=== PATIENT | female | born 1945 | race Caucasian/White ===

== ENCOUNTER 2016-09-07 13:01 | Emergency (ER) | payer MEDICARE ==
[2016-09-07 14:29] VITALS: BP 143/65
--- NOTE | 2016-09-07 15:28 | UC ---
Throat Pain/Nasal Estefania HPI - HPI Summary HPI Summary: ST, nasal estefania, PND, prod cough, red/weepy eyes starting 3 days ago. Not sure if she's had a fever. Denies wheezing or rash. Has to call into work today. - History of Current Complaint Chief Complaint: UCRespiratory Stated Complaint: SORE THROAT Time Seen by Provider: 09/07/16 14:52 Hx Obtained From: Patient ?: No Onset/Duration: Gradual Onset, Lasting Days Severity: Moderate Cough: Productive Associated Signs & Symptoms: Positive: Nasal Discharge. Negative: Fever, Vomiting - Allergies/Home Medications Allergies/Adverse Reactions: Allergies Allergy/AdvReac Type Severity Reaction Status Date / Time Atorvastatin [From Lipitor] Allergy Intermediate Body Aches Verified 09/05/14 20 :13 Gemfibrozil Allergy Intermediate Full Body Verified 09/05/14 20:13 Aches Niacin [From Niaspan] Allergy Intermediate Hives Verified 09/05/14 20:13 Penicillins [PCN] Allergy Intermediate Hives Verified 09/05/14 20:13 Statins Allergy Intermediate Body Aches Verified 09/05/14 20:13 Latex Allergy RED FARRAR Verified 09/05/14 20:13 Home Medications: Home Medications Multiple Vitamins W/ Minerals [Airborne] 1 tab PO 09/07/16 [History] PMH/Surg Hx/FS Hx/Imm Hx Endocrine History Of: Reports: Diabetes - DM II Denies: Thyroid Disease Cardiovascular History Of: Reports: Hypertension Denies: Cardiac Disorders Respiratory History Of: Reports: Asthma, Pulmonary Embolism - 2004 AFTER RIGHT TKR Denies: COPD GI/ History Of: Denies: Ulcer Cancer History Of: Denies: Breast Cancer - Surgical History Surgical History: Yes Surgery Procedure, Year, and Place: RIGHT KNEE REPLACED 2007. Left knee replaced 2013. cyst under chin (benign). bilat wrists CTS - Family History Known Family History: Positive: Hypertension - Social History Occupation: Employed Full-time - home health aide Alcohol Use: None Substance Use Type: None Smoking Status (MU): Former Smoker Type: Cigarettes Length of Time of Smoking/Using Tobacco: ABOUT 6 MONTHS Have You Smoked in the Last Year: No When Did the Patient Quit Smoking/Using Tobacco: 1984 - Immunization History Most Recent Influenza Vaccination: 2013 Most Recent Tetanus Shot: UNKNOWN Most Recent Pneumonia Vaccination: apr 2015 Review of Systems Constitutional: Negative Skin: Negative Eyes: Drainage, Eye Redness ENT: Sore Throat, Nasal Discharge Respiratory: Cough Cardiovascular: Negative Gastrointestinal: Negative Genitourinary: Negative Motor: Negative Neurovascular: Negative Musculoskeletal: Negative Neurological: Negative Psychological: Negative All Other Systems Reviewed And Are Negative: Yes Physical Exam Triage Information Reviewed: Yes Appearance: Well-Appearing, No Pain Distress, Obese Vital Signs: Initial Vital Signs Temp 97.8 F 09/07/16 14:26 Pulse 70 09/07/16 14:26 Resp 18 09/07/16 14:26 BP 143/65 09/07/16 14:26 Pulse Ox 99 09/07/16 14:26 Vital Signs Reviewed: Yes Eyes: Positive: Conjunctiva Inflamed, Discharge - clear ENT: Positive: Pharynx normal, Nasal congestion, Nasal drainage, TMs normal. Negative: Tonsillar swelling, Tonsillar exudate Dental Exam: Normal Neck exam: Normal Neck: Positive: Supple, Nontender, No Lymphadenopathy Respiratory Exam: Normal Respiratory: Positive: Chest non-tender, Lungs clear, Normal breath sounds, No respiratory distress, No accessory muscle use Cardiovascular Exam: Normal Cardiovascular: Positive: RRR, No Murmur Musculoskeletal Exam: Normal Neurological Exam: Normal Psychological Exam: Normal Skin Exam: Normal Throat Pain/Nasal Course/Dx - Differential Dx/Diagnosis Provider Diagnoses: URI, likely viral. conjunctivitis, likely viral Discharge - Discharge Plan Condition: Stable Disposition: HOME Prescriptions: Polymyx/Trimethoprim OPTH* [Polytrim OPHTH*] 1 drop BOTH EYES TID #1 btl Patient Education Materials: Upper Respiratory Infection (ED), Conjunctivitis ( ED) Forms: *Work Release Referrals: Tawanna Rich MD [Primary Care Provider] - If Needed Additional Instructions: As we discussed, I feel fairly certain that your conjunctivitis is viral. It will not likely get better any faster with the antibiotic drops. However, sometimes employers are concerned about red eyes and require medicine to return to work. Call or return if you develop increasing fever, shortness of breath, chest pain , bloody sputum, or otherwise worsen. If you have not improved at all after several days, contact your primary care physician or return here.
== END 2016-09-07 15:23 | disposition home or self-care (01) ==
LOC: UCEAST 13:01
DX: J06.9 Acute upper respiratory infection, unspecified (principal); H10.30 Unspecified acute conjunctivitis, unspecified eye; Z88.0 Allergy status to penicillin; Z88.8 Allergy status to other drugs, medicaments and biological substances; Z87.891 Personal history of nicotine dependence
CPT/HCPCS: 99212; G0463

== ENCOUNTER 2023-01-14 11:42 | Inpatient (IN) ==
[2023-01-14 13:36] LABS: ABS Eosinophils 0.1 10^3/uL (0.0-0.5); ABS Lymphocytes 0.7 10^3/uL (1.0-4.8); ABS Monocytes 1.3 10^3/uL (0.0-0.9); Eosinophil % 0.5 %; Hematocrit 41.8 % (35-45); Hemoglobin 14.5 g/dL (11.5-14.3); Lymphocyte % 6.9 %; Mean Corpuscular Hemoglobin 31.8 pg (27-33); Mean Corpuscular Hgb Conc 34.7 g/dL (31-36); Mean Corpuscular Volume 91.5 fL (80-97); Mean Platelet Volume 7.5 fL (7.5-11.2); Platelet Count 222 10^3/uL (150-450); Red Blood Count 4.57 10^6/uL (3.63-4.92); Red Cell Distribution Width 13.9 % (12-17); White Blood Count 10.2 10^3/uL (3.8-11.8)
[2023-01-14 13:49] LABS: Activated Partial Thrombo Time 38.8 seconds (26.0-38.0); INR 2.43 (0.88-1.18)
[2023-01-14 14:31] LABS: Albumin 4.4 g/dL (3.2-5.2); Albumin/Globulin Ratio 1.7 (1-3); C Reactive Protein 49.77 mg/L (<8.01); Calcium 9.2 mg/dL (8.6-10.3); Creatinine, Serum 0.77 mg/dL (0.51-0.95); Globulin 2.6 g/dL (2-4); Potassium 3.4 mmol/L (3.5-5.0); eGFR CKD-EPI 80.4 (>60)
[2023-01-14] MEDS ORDERED: Potassium Chlor 20 meq TAB.ER PO ONE (14:44)
[2023-01-14] MEDS: Orphenadrine Citrate INJ 30 mg/ml 2 ml VIAL (60 mg) IV ONE ×2 (15:06→15:09)
[2023-01-14] MEDS ORDERED: Morphine 4 MG/ML VIAL (1 ml) IV ONE ×2 (16:51→19:49)
[2023-01-14 18:05] LABS: High Sensitivity Troponin 1 Hr 9 pg/mL (<15)
[2023-01-14 18:52] LABS: Erythrocyte Sed Rate 42 mm/Hr (0-29)
[2023-01-14 20:44] LABS: Body Fluid Appearance Cloudy; Body Fluid Color Yellow; Body Fluid Source Synovial Fluid
[2023-01-14 20:47] LABS: Body Fluid Appearance Cloudy; Body Fluid Color Amber; Body Fluid Source Synovial Fluid
[2023-01-14 21:16] LABS: Body Fluid WBC 576 /mcL
[2023-01-14 21:31] LABS: Body Fluid WBC 49295 /mcL
[2023-01-14 21:42] LABS: Body Fluid Band 2 %; Body Fluid Mono 32 %; Body Fluid Other Cells 60; Body Fluid Total Cells Counted 200
[2023-01-14] MEDS ORDERED: Piperacillin/Tazobac ADVAN 3.375 GM in NS 0.9% 100 ml BAG 100 ML IV ONE (21:59)
[2023-01-14] MEDS ORDERED: Vancomycin 1,000 MG in NS 0.9% 250 ml 250 ML IVPB ONE (21:59)
[2023-01-14] MEDS ORDERED: Ciprofloxacin 400mg IVPREMIX 400 MG/200 ML BAG IVPB ONE (22:07)
[2023-01-14 22:43] LABS: Body Fluid Mono 9 %; Body Fluid Total Cells Counted 200
[2023-01-15] MEDS ORDERED: Acetaminophen IV 1 GM/100ML 1,000 MG/100 ML BAG IV PRN (00:37)
[2023-01-15 02:35] LABS: Urine Appearance Cloudy; Urine Bilirubin Negative (Negative); Urine Blood Negative (Negative); Urine Color Yellow; Urine Glucose Negative (Negative); Urine Ketones Trace (Negative); Urine Nitrite Negative (Negative); Urine Protein 1+(30 mg/dL) (Negative); Urine Specific Gravity 1.023 (1.002-1.030); Urine Urobilinogen Negative (Negative)
[2023-01-15 02:44] LABS: Urine Bacteria Absent (Absent); Urine Red Blood Cell 1+(3-5/hpf) (Absent); Urine Squamous Epithelial Cell Present (Absent); Urine White Blood Cell Trace(0-5/hpf) (Absent)
[2023-01-15 06:05] LABS: Hematocrit 39.3 % (35-45); Hemoglobin 13.9 g/dL (11.5-14.3); Mean Corpuscular Hemoglobin 32.4 pg (27-33); Mean Corpuscular Hgb Conc 35.4 g/dL (31-36); Mean Corpuscular Volume 91.4 fL (80-97); Mean Platelet Volume 7.1 fL (7.5-11.2); Platelet Count 211 10^3/uL (150-450); Red Cell Distribution Width 14.3 % (12-17); White Blood Count 9.6 10^3/uL (3.8-11.8)
[2023-01-15 06:13] LABS: INR 2.22 (0.88-1.18)
[2023-01-15 06:28] LABS: ABS Lymphocytes 0.9 10^3/uL (1.0-4.8); ABS Monocytes 1.6 10^3/uL (0.0-0.9); ABS Neutrophils 7.1 10^3/uL (1.5-7.6); ABS Nucleated RBC 0.01 10^3/ul; Eosinophil % 0.1 %; Nucleated Red Blood Cells % 0.1 /100 WBC (0.0-0.4)
[2023-01-15 06:54] LABS: Calcium 8.6 mg/dL (8.6-10.3); Creatinine, Serum 0.78 mg/dL (0.51-0.95); Potassium 3.6 mmol/L (3.5-5.0); eGFR CKD-EPI 79.2 (>60)
[2023-01-15] MEDS ORDERED: KCL 20 MEQ/100 ML IVPREMIX 20 MEQ/100 ML BAG IV ONE (07:12)
[2023-01-15] MEDS ORDERED: cefTRIAXone 2 gm/50 mL D5W 2 GM/50 ML BAG IV SCH (09:00)
[2023-01-15] MEDS ORDERED: Vancomycin per Pharmacy 1 EA NOTE FOLLOW UP SCH (09:00)
[2023-01-15] MEDS ORDERED: Lidocaine 1% VIAL 10 MG/ML VIAL 30 ML ONE (11:02)
[2023-01-15] MEDS ORDERED: Bupivacaine 0.5% SDV PF 30ML VIAL ONE (11:02)
[2023-01-15] MEDS ORDERED: Succinylcholine 200 mg VIAL 20 mg/ml 10 ml VIAL (200 mg) ONE (11:03)
[2023-01-15] MEDS ORDERED: Rocuronium 50 mg VIAL 10 mg/ml 5 ml VIAL (50 mg) ONE (11:03)
[2023-01-15] MEDS ORDERED: Lidocaine 2% PF 5 ML VIAL ONE (11:04)
[2023-01-15] MEDS ORDERED: Phenylephrine 40 mcg/mL 10mL (400mcg) SYRINGE ONE (11:04)
[2023-01-15] MEDS ORDERED: Propofol 10 MG/ML 20 ML BTL ONE (11:04)
[2023-01-15] MEDS ORDERED: fentaNYL 250 mcg/5 ml 50 MCG/ML 5 ml VIAL (250 MCG) ONE (11:05)
[2023-01-15] MEDS ORDERED: Midazolam 2 mg/2 ml VIAL 1 mg/ml 2 ml VIAL (2 mg) ONE (11:05)
[2023-01-15] MEDS: Vancomycin 1000 MG in NS 0.9% 250 ML IVPB SCH ×2 (11:28→22:33)
[2023-01-15] MEDS ORDERED: KCL 20 MEQ/100 ML IVPREMIX 20 MEQ/100 ML BAG ONE (11:29)
[2023-01-15] MEDS ORDERED: Naloxone 0.4 mg VIAL 0.4 mg/ml 1 ml VIAL IV PRN (13:00)
[2023-01-15] MEDS ORDERED: fentaNYL 100 mcg/2 ml 50 MCG/ML VIAL IV PRN (13:00)
[2023-01-15] MEDS ORDERED: Morphine 4 MG/ML VIAL (1 ml) ONE (13:18)
[2023-01-15] MEDS: Morphine 4 MG/ML VIAL (1 ml) IV PRN ×2 (13:20→13:29)
[2023-01-15] MEDS: Enoxaparin 100 MG/ML SYR SUBCUT SCH (17:16)
[2023-01-15] MEDS: Polyethylene Glycol 3350 17 GM PACKET PO PRN (20:09)
[2023-01-15] MEDS: Nystatin TOP POWDER 15 GM BTL TOPICAL SCH (20:11)
[2023-01-16] MEDS: Enoxaparin 100 MG/ML SYR SUBCUT SCH ×2 (05:34→17:01)
[2023-01-16 06:00] LABS: Hematocrit 38.2 % (35-45); Hemoglobin 13.1 g/dL (11.5-14.3); Mean Corpuscular Hemoglobin 31.9 pg (27-33); Mean Corpuscular Hgb Conc 34.4 g/dL (31-36); Mean Corpuscular Volume 92.9 fL (80-97); Mean Platelet Volume 7.6 fL (7.5-11.2); Platelet Count 213 10^3/uL (150-450); Red Blood Count 4.11 10^6/uL (3.63-4.92); Red Cell Distribution Width 13.7 % (12-17); White Blood Count 11.2 10^3/uL (3.8-11.8)
[2023-01-16 06:17] LABS: INR 2.28 (0.88-1.18)
[2023-01-16 06:19] LABS: Calcium 8.2 mg/dL (8.6-10.3); Creatinine, Serum 0.65 mg/dL (0.51-0.95); Magnesium 1.7 mg/dL (1.9-2.7); eGFR CKD-EPI 91.8 (>60)
[2023-01-16] MEDS ORDERED: Magnesium Sulfate 2 gm BAG 2 GM/50 ML BAG IVPB ONE (07:33)
[2023-01-16] MEDS: Nystatin TOP POWDER 15 GM BTL TOPICAL SCH ×3 (10:11→20:45)
[2023-01-16] MEDS ORDERED: Vancomycin Trough Check NOTE FOLLOW UP ONE (10:30)
[2023-01-16] MEDS: Vancomycin 1000 MG in NS 0.9% 250 ML IVPB SCH ×2 (12:05→23:09)
[2023-01-16] MEDS: Polyethylene Glycol 3350 17 GM PACKET PO PRN (20:44)
[2023-01-17] MEDS: Enoxaparin 100 MG/ML SYR SUBCUT SCH ×2 (05:34→17:59)
[2023-01-17 05:51] LABS: Hematocrit 38.6 % (35-45); Hemoglobin 13.3 g/dL (11.5-14.3); Mean Corpuscular Hemoglobin 32.2 pg (27-33); Mean Corpuscular Hgb Conc 34.4 g/dL (31-36); Mean Corpuscular Volume 93.5 fL (80-97); Mean Platelet Volume 7.5 fL (7.5-11.2); Platelet Count 232 10^3/uL (150-450); Red Blood Count 4.13 10^6/uL (3.63-4.92); Red Cell Distribution Width 13.8 % (12-17); White Blood Count 10.5 10^3/uL (3.8-11.8)
[2023-01-17 06:33] LABS: Calcium 8.1 mg/dL (8.6-10.3); Creatinine, Serum 0.72 mg/dL (0.51-0.95); Magnesium 1.7 mg/dL (1.9-2.7); Potassium 3.7 mmol/L (3.5-5.0); eGFR CKD-EPI 87.1 (>60)
[2023-01-17] MEDS ORDERED: Magnesium Sulfate 2 gm BAG 2 GM/50 ML BAG IVPB ONE (06:56)
[2023-01-17] MEDS ORDERED: Potassium EFFERVES 25 meq TAB PO ONE (06:56)
[2023-01-17 08:41] LABS: C Reactive Protein 143.86 mg/L (<8.01)
[2023-01-17] MEDS: Nystatin TOP POWDER 15 GM BTL TOPICAL SCH ×3 (08:44→21:47)
[2023-01-17] MEDS ORDERED: HYDROmorphone 1 MG/1 ML SYRINGE IV ONE (11:00)
[2023-01-17] MEDS: Vancomycin 1000 MG in NS 0.9% 250 ML IVPB SCH ×2 (11:38→23:03)
[2023-01-17] MEDS ORDERED: Gadoteridol (CONTRAST) 279.3 MG/ML 10 ML IV ONE (13:05)
[2023-01-17] MEDS: Polyethylene Glycol 3350 17 GM PACKET PO PRN (21:47)
[2023-01-18] MEDS: Enoxaparin 100 MG/ML SYR SUBCUT SCH ×2 (05:24→17:12)
[2023-01-18 06:10] LABS: Hematocrit 35.2 % (35-45); Hemoglobin 12.1 g/dL (11.5-14.3); Mean Corpuscular Hemoglobin 31.3 pg (27-33); Mean Corpuscular Hgb Conc 34.3 g/dL (31-36); Mean Corpuscular Volume 91.1 fL (80-97); Mean Platelet Volume 7.6 fL (7.5-11.2); Platelet Count 202 10^3/uL (150-450); Red Blood Count 3.86 10^6/uL (3.63-4.92); Red Cell Distribution Width 13.8 % (12-17); White Blood Count 11.2 10^3/uL (3.8-11.8)
[2023-01-18 06:53] LABS: C Reactive Protein 304.68 mg/L (<8.01); Calcium 7.8 mg/dL (8.6-10.3); Creatinine, Serum 0.96 mg/dL (0.51-0.95); Magnesium 2.3 mg/dL (1.9-2.7); Potassium 3.7 mmol/L (3.5-5.0); eGFR CKD-EPI 61.7 (>60)
[2023-01-18] MEDS ORDERED: KCL 20 MEQ/100 ML IVPREMIX 20 MEQ/100 ML BAG IV ONE (07:28)
[2023-01-18] MEDS ORDERED: Lactated Ringers 1000 ml BAG 1,000 ML IV SCH (08:00)
[2023-01-18] MEDS: Nystatin TOP POWDER 15 GM BTL TOPICAL SCH ×3 (08:57→23:08)
[2023-01-18] MEDS ORDERED: Vancomycin Trough Check NOTE FOLLOW UP ONE (10:30)
[2023-01-18] MEDS: Vancomycin 1000 MG in NS 0.9% 250 ML IVPB SCH (12:16)
[2023-01-18] MEDS: Vancomycin 1,250 MG in NS 0.9% 250 ml 250 ML IVPB SCH (13:31)
[2023-01-18] MEDS: Polyethylene Glycol 3350 17 GM PACKET PO PRN (16:12)
[2023-01-19] MEDS: Vancomycin 1,250 MG in NS 0.9% 250 ml 250 ML IVPB SCH ×2 (00:14→12:33)
[2023-01-19] MEDS: Enoxaparin 100 MG/ML SYR SUBCUT SCH ×2 (05:57→16:59)
[2023-01-19 06:26] LABS: Hematocrit 32.9 % (35-45); Hemoglobin 11.4 g/dL (11.5-14.3); Mean Corpuscular Hemoglobin 31.9 pg (27-33); Mean Corpuscular Hgb Conc 34.6 g/dL (31-36); Mean Corpuscular Volume 92.1 fL (80-97); Mean Platelet Volume 7.9 fL (7.5-11.2); Platelet Count 213 10^3/uL (150-450); Red Blood Count 3.57 10^6/uL (3.63-4.92); Red Cell Distribution Width 13.7 % (12-17)
[2023-01-19 06:59] LABS: C Reactive Protein 254.55 mg/L (<8.01); Calcium 7.6 mg/dL (8.6-10.3); Creatinine, Serum 1.02 mg/dL (0.51-0.95); Magnesium 2.4 mg/dL (1.9-2.7); Potassium 3.8 mmol/L (3.5-5.0); eGFR CKD-EPI 57.4 (>60)
[2023-01-19] MEDS ORDERED: Potassium EFFERVES 25 meq TAB PO ONE (07:18)
[2023-01-19] MEDS: Nystatin TOP POWDER 15 GM BTL TOPICAL SCH ×3 (07:33→22:00)
[2023-01-19] MEDS ORDERED: Lactated Ringers 1000 ml BAG 1,000 ML IV SCH (08:00)
[2023-01-20] MEDS: Vancomycin 1,250 MG in NS 0.9% 250 ml 250 ML IVPB SCH ×2 (00:03→14:09)
[2023-01-20] MEDS: Enoxaparin 100 MG/ML SYR SUBCUT SCH (05:38)
[2023-01-20 05:47] LABS: Hematocrit 24.7 % (35-45); Hemoglobin 8.6 g/dL (11.5-14.3); Mean Corpuscular Hemoglobin 32.4 pg (27-33); Mean Corpuscular Volume 92.7 fL (80-97); Mean Platelet Volume 8.1 fL (7.5-11.2); Platelet Count 200 10^3/uL (150-450); Red Blood Count 2.67 10^6/uL (3.63-4.92); Red Cell Distribution Width 13.5 % (12-17); White Blood Count 8.3 10^3/uL (3.8-11.8)
[2023-01-20 06:25] LABS: C Reactive Protein 140.18 mg/L (<8.01); Calcium 7.4 mg/dL (8.6-10.3); Creatinine, Serum 0.99 mg/dL (0.51-0.95); Magnesium 2.1 mg/dL (1.9-2.7); eGFR CKD-EPI 59.5 (>60)
[2023-01-20] MEDS ORDERED: Pantoprazole VIAL 40 MG VIAL IV ONE (08:56)
[2023-01-20] MEDS: Nystatin TOP POWDER 15 GM BTL TOPICAL SCH ×2 (09:41→14:10)
[2023-01-20 09:59] LABS: ABS Eosinophils 0.3 10^3/uL (0.0-0.5); ABS Lymphocytes 0.6 10^3/uL (1.0-4.8); ABS Monocytes 0.8 10^3/uL (0.0-0.9); ABS Neutrophils 6.6 10^3/uL (1.5-7.6); Eosinophil % 3.5 %; Hematocrit 23.5 % (35-45); Hemoglobin 8.1 g/dL (11.5-14.3); Lymphocyte % 7.1 %; Mean Corpuscular Hemoglobin 31.7 pg (27-33); Mean Corpuscular Hgb Conc 34.2 g/dL (31-36); Mean Corpuscular Volume 92.8 fL (80-97); Mean Platelet Volume 8.1 fL (7.5-11.2); Platelet Count 193 10^3/uL (150-450); Red Blood Count 2.54 10^6/uL (3.63-4.92); Red Cell Distribution Width 13.5 % (12-17); White Blood Count 8.4 10^3/uL (3.8-11.8)
[2023-01-20] MEDS ORDERED: Lactated Ringers 1000 ml BAG 1,000 ML IV SCH (10:00)
[2023-01-20 10:56] LABS: Calcium 7.4 mg/dL (8.6-10.3); Creatinine, Serum 0.93 mg/dL (0.51-0.95); Potassium 4.2 mmol/L (3.5-5.0); Vancomycin Trough 17.6 mcg/mL; eGFR CKD-EPI 64.1 (>60)
[2023-01-20] MEDS ORDERED: Calcium Gluconate 2 GM in NS 0.9% 100 ml BAG 100 ML IV ONE (11:26)
[2023-01-20] MEDS ORDERED: Vancomycin Trough Check NOTE FOLLOW UP ONE (12:30)
[2023-01-20 14:45] LABS: ABS Eosinophils 0.2 10^3/uL (0.0-0.5); ABS Lymphocytes 0.5 10^3/uL (1.0-4.8); ABS Monocytes 0.5 10^3/uL (0.0-0.9); ABS Neutrophils 3.9 10^3/uL (1.5-7.6); ABS Nucleated RBC 0.01 10^3/ul; Eosinophil % 3.6 %; Hematocrit 16.4 % (35-45); Hemoglobin 5.7 g/dL (11.5-14.3); Mean Corpuscular Hemoglobin 31.6 pg (27-33); Mean Corpuscular Hgb Conc 34.7 g/dL (31-36); Mean Corpuscular Volume 91.1 fL (80-97); Mean Platelet Volume 7.8 fL (7.5-11.2); Nucleated Red Blood Cells % 0.1 /100 WBC (0.0-0.4); Platelet Count 136 10^3/uL (150-450); Red Cell Distribution Width 13.9 % (12-17); White Blood Count 5.1 10^3/uL (3.8-11.8)
[2023-01-20 15:01] LABS: ABS Eosinophils 0.3 10^3/uL (0.0-0.5); ABS Lymphocytes 0.8 10^3/uL (1.0-4.8); ABS Monocytes 0.8 10^3/uL (0.0-0.9); ABS Neutrophils 5.7 10^3/uL (1.5-7.6); ABS Nucleated RBC 0.01 10^3/ul; Eosinophil % 3.9 %; Hematocrit 23.8 % (35-45); Hemoglobin 8.4 g/dL (11.5-14.3); Lymphocyte % 10.1 %; Mean Corpuscular Hemoglobin 31.9 pg (27-33); Mean Corpuscular Hgb Conc 35.4 g/dL (31-36); Mean Corpuscular Volume 90.2 fL (80-97); Mean Platelet Volume 8.1 fL (7.5-11.2); Nucleated Red Blood Cells % 0.1 /100 WBC (0.0-0.4); Platelet Count 203 10^3/uL (150-450); Red Blood Count 2.64 10^6/uL (3.63-4.92); Red Cell Distribution Width 13.9 % (12-17); White Blood Count 7.7 10^3/uL (3.8-11.8)
[2023-01-20] MEDS: Pantoprazole VIAL 40 MG VIAL IV SCH (20:38)
[2023-01-20 21:37] LABS: Hemoglobin 7.6 g/dL (11.5-14.3)
[2023-01-21] MEDS: Nystatin TOP POWDER 15 GM BTL TOPICAL SCH ×4 (00:02→21:50)
[2023-01-21] MEDS: Vancomycin 1,250 MG in NS 0.9% 250 ml 250 ML IVPB SCH ×2 (02:15→13:07)
[2023-01-21 02:33] LABS: Hematocrit 23.8 % (35-45); Hemoglobin 8.3 g/dL (11.5-14.3)
[2023-01-21 06:13] LABS: Hematocrit 23.6 % (35-45); Hemoglobin 8.4 g/dL (11.5-14.3); Mean Corpuscular Hemoglobin 31.8 pg (27-33); Mean Corpuscular Hgb Conc 35.5 g/dL (31-36); Mean Corpuscular Volume 89.4 fL (80-97); Mean Platelet Volume 8.2 fL (7.5-11.2); Platelet Count 200 10^3/uL (150-450); Red Blood Count 2.64 10^6/uL (3.63-4.92); Red Cell Distribution Width 14.4 % (12-17); White Blood Count 6.8 10^3/uL (3.8-11.8)
[2023-01-21 06:41] LABS: Magnesium 1.8 mg/dL (1.9-2.7); Potassium 3.8 mmol/L (3.5-5.0)
[2023-01-21 06:46] LABS: Creatinine, Serum 0.88 mg/dL (0.51-0.95); eGFR CKD-EPI 68.5 (>60)
[2023-01-21] MEDS ORDERED: Magnesium Sulfate 2 gm BAG 2 GM/50 ML BAG IVPB ONE (06:52)
[2023-01-21] MEDS ORDERED: Potassium EFFERVES 25 meq TAB PO ONE (06:52)
[2023-01-21 07:00] LABS: ABS Eosinophils 0.4 10^3/uL (0.0-0.5); ABS Lymphocytes 0.8 10^3/uL (1.0-4.8); ABS Neutrophils 4.7 10^3/uL (1.5-7.6); ABS Nucleated RBC 0.01 10^3/ul; Eosinophil % 5.3 %; Lymphocyte % 11.1 %; Nucleated Red Blood Cells % 0.2 /100 WBC (0.0-0.4)
[2023-01-21] MEDS: Pantoprazole VIAL 40 MG VIAL IV SCH ×2 (08:00→21:51)
[2023-01-21 20:05] LABS: Hematocrit 23.3 % (35-45); Hemoglobin 8.2 g/dL (11.5-14.3); Mean Corpuscular Hemoglobin 31.4 pg (27-33); Mean Corpuscular Hgb Conc 35.2 g/dL (31-36); Mean Corpuscular Volume 89.2 fL (80-97); Mean Platelet Volume 8.2 fL (7.5-11.2); Platelet Count 208 10^3/uL (150-450); Red Blood Count 2.61 10^6/uL (3.63-4.92); Red Cell Distribution Width 14.8 % (12-17); White Blood Count 6.3 10^3/uL (3.8-11.8)
[2023-01-21] MEDS ORDERED: Lidocaine 4% CREAM (LMX) 5 GM TUBE TOPICAL ONE (22:29)
[2023-01-22] MEDS: Vancomycin 1,250 MG in NS 0.9% 250 ml 250 ML IVPB SCH ×2 (02:07→12:51)
[2023-01-22 06:04] LABS: Hematocrit 23.7 % (35-45); Hemoglobin 8.3 g/dL (11.5-14.3); Mean Corpuscular Hemoglobin 31.7 pg (27-33); Mean Corpuscular Hgb Conc 34.9 g/dL (31-36); Mean Corpuscular Volume 90.7 fL (80-97); Mean Platelet Volume 7.9 fL (7.5-11.2); Platelet Count 207 10^3/uL (150-450); Red Blood Count 2.62 10^6/uL (3.63-4.92); Red Cell Distribution Width 14.5 % (12-17); White Blood Count 7.1 10^3/uL (3.8-11.8)
[2023-01-22 06:10] LABS: INR 1.24 (0.88-1.18)
[2023-01-22 06:35] LABS: Albumin 2.9 g/dL (3.2-5.2); Albumin/Globulin Ratio 1.5 (1-3); Calcium 8.3 mg/dL (8.6-10.3); Creatinine, Serum 0.86 mg/dL (0.51-0.95); Globulin 1.9 g/dL (2-4); Magnesium 1.7 mg/dL (1.9-2.7); Potassium 4.2 mmol/L (3.5-5.0); Total Bilirubin 0.4 mg/dL (0.2-1.0); Total Protein 4.8 g/dL (6.4-8.9); eGFR CKD-EPI 70.4 (>60)
[2023-01-22] MEDS ORDERED: Magnesium Sulfate IV 3 GM in NS 0.9% 100 ml BAG 100 ML IVPB ONE (08:00)
[2023-01-22] MEDS: Pantoprazole VIAL 40 MG VIAL IV SCH ×2 (08:54→20:11)
[2023-01-22] MEDS: Nystatin TOP POWDER 15 GM BTL TOPICAL SCH ×3 (08:59→20:19)
[2023-01-22] MEDS ORDERED: fentaNYL 100 mcg/2 ml 50 MCG/ML VIAL ONE ×2 (15:55→15:56)
[2023-01-22] MEDS ORDERED: Midazolam 10 mg/10 ml VIAL 1 mg/ml 10 ml VIAL (10 mg) ONE ×2 (15:55→15:56)
[2023-01-23] MEDS: Vancomycin 1,250 MG in NS 0.9% 250 ml 250 ML IVPB SCH ×2 (01:03→13:51)
[2023-01-23 07:52] LABS: Hematocrit 23.4 % (35-45); Hemoglobin 8.2 g/dL (11.5-14.3); Mean Corpuscular Hemoglobin 32.1 pg (27-33); Mean Corpuscular Volume 91.6 fL (80-97); Mean Platelet Volume 8.2 fL (7.5-11.2); Platelet Count 216 10^3/uL (150-450); Red Blood Count 2.55 10^6/uL (3.63-4.92); Red Cell Distribution Width 14.1 % (12-17); White Blood Count 8.3 10^3/uL (3.8-11.8)
[2023-01-23 08:03] LABS: Anion Gap 7 mmol/L (2-16); Blood Urea Nitrogen 22 mg/dL (6-24); C Reactive Protein 103.19 mg/L (<8.01); CO2 Carbon Dioxide 29 mmol/L (22-32); Calcium 8.3 mg/dL (8.6-10.3); Chloride 100 mmol/L (101-111); Creatinine, Serum 0.91 mg/dL (0.51-0.95); Glucose 117 mg/dL (70-100); Magnesium 1.7 mg/dL (1.9-2.7); Sodium 136 mmol/L (135-145); eGFR CKD-EPI 65.8 (>60)
[2023-01-23] MEDS ORDERED: Magnesium Sulfate IV 3 GM in NS 0.9% 100 ml BAG 100 ML IVPB ONE (08:08)
[2023-01-23] MEDS ORDERED: Albuterol HFA INHALER 8 gm MDI INH PRN (08:09)
[2023-01-23] MEDS: Nystatin TOP POWDER 15 GM BTL TOPICAL SCH ×3 (08:16→20:31)
[2023-01-23] MEDS: Pantoprazole VIAL 40 MG VIAL IV SCH ×2 (08:17→20:29)
[2023-01-23] MEDS ORDERED: Vancomycin Trough Check NOTE FOLLOW UP ONE (12:30)
[2023-01-23 12:58] LABS: Chlamydia trachomatis NAA Negative (Negative); Neisseria gonorrhoeae (GC) NAA Negative (Negative)
[2023-01-23 13:36] LABS: Rheumatoid Factor < 10 IU/mL (<15); Uric Acid 8.4 mg/dL (2.3-6.6)
[2023-01-23] MEDS: Polyethylene Glycol 3350 17 GM PACKET PO PRN (20:30)
[2023-01-24 06:31] LABS: Hematocrit 23.9 % (35-45); Hemoglobin 8.3 g/dL (11.5-14.3); Mean Corpuscular Hemoglobin 31.9 pg (27-33); Mean Corpuscular Hgb Conc 34.7 g/dL (31-36); Mean Corpuscular Volume 91.8 fL (80-97); Mean Platelet Volume 8.5 fL (7.5-11.2); Platelet Count 230 10^3/uL (150-450); Red Blood Count 2.61 10^6/uL (3.63-4.92); Red Cell Distribution Width 14.1 % (12-17); White Blood Count 11.4 10^3/uL (3.8-11.8)
[2023-01-24 06:57] LABS: Calcium 8.3 mg/dL (8.6-10.3); Creatinine, Serum 0.98 mg/dL (0.51-0.95); Magnesium 1.7 mg/dL (1.9-2.7); Vancomycin Random 13.7 mcg/mL; eGFR CKD-EPI 60.2 (>60)
[2023-01-24] MEDS ORDERED: Magnesium Sulfate 2 gm BAG 2 GM/50 ML BAG IVPB ONE (08:30)
[2023-01-24] MEDS: Pantoprazole VIAL 40 MG VIAL IV SCH ×2 (09:04→21:46)
[2023-01-24] MEDS: Nystatin TOP POWDER 15 GM BTL TOPICAL SCH ×3 (10:13→21:50)
[2023-01-24] MEDS: Vancomycin 1,750 MG in NS 0.9% 500 ml BAG 500 ML IVPB SCH (10:22)
[2023-01-24 10:54] LABS: Rapid COVID-19 Molecular Undetected (Undetected)
[2023-01-24] MEDS: Lidocaine PATCH 5% PATCH TRANSDERM SCH (11:04)
[2023-01-24 18:52] LABS: Anaplasma phagocytophilum Negative (Negative); B. miyamotoi PCR, B Negative (Negative); Babesia divergens/MO-1 Negative (Negative); Babesia ducani Negative (Negative); Ehrlichia chaffeensis Negative (Negative); Ehrlichia ewingii/canis Negative (Negative); Ehrlichia muris eauclairensis Negative (Negative)
[2023-01-24] MEDS ORDERED: Magnesium Hydroxide LIQ 30 ML UDC PO PRN (21:42)
[2023-01-25 05:51] LABS: Hematocrit 23.3 % (35-45); Hemoglobin 8.1 g/dL (11.5-14.3); Mean Corpuscular Hemoglobin 31.3 pg (27-33); Mean Corpuscular Hgb Conc 34.7 g/dL (31-36); Mean Corpuscular Volume 90.2 fL (80-97); Mean Platelet Volume 8.7 fL (7.5-11.2); Platelet Count 255 10^3/uL (150-450); Red Blood Count 2.59 10^6/uL (3.63-4.92); Red Cell Distribution Width 14.1 % (12-17); White Blood Count 8.4 10^3/uL (3.8-11.8)
[2023-01-25 06:17] LABS: C Reactive Protein 164.86 mg/L (<8.01); Calcium 8.3 mg/dL (8.6-10.3); Creatinine, Serum 0.97 mg/dL (0.51-0.95); Magnesium 1.7 mg/dL (1.9-2.7); Potassium 3.8 mmol/L (3.5-5.0); eGFR CKD-EPI 60.9 (>60)
[2023-01-25] MEDS: Pantoprazole VIAL 40 MG VIAL IV SCH (08:58)
[2023-01-25] MEDS: Lidocaine PATCH 5% PATCH TRANSDERM SCH (08:58)
[2023-01-25] MEDS: Nystatin TOP POWDER 15 GM BTL TOPICAL SCH (08:58)
[2023-01-25] MEDS: Vancomycin 1,750 MG in NS 0.9% 500 ml BAG 500 ML IVPB SCH (09:50)
[2023-01-25 10:21] VITALS: BP 109/69
[2023-01-26] MEDS ORDERED: Vancomycin Trough Check NOTE FOLLOW UP ONE (09:00)
[2023-01-26 11:49] LABS: Cyclic Citrullinated Pept IgG <15.6 U
== END 2023-01-25 14:20 | DRG 549 ==
LOC: ED 11:42 → EDHOLD 22:56 → SUATTDRO 22:56 → AA 01-15 10:45 → MED 01-15 14:49
PROVIDERS: ADMIT Internal Medicine; ATTEND Internal Medicine